=== PATIENT | female | born 1975 | race Hispanic/Latino ===

== ENCOUNTER 2023-05-16 06:26 | Inpatient (IN) | payer OTHER ==
[~2023-05-16] VITALS: Ht 160 cm; Wt 64.2 kg
[2023-05-16] MEDS ORDERED: ZOSYN 3.375GM +NS 50ML IV ONE (07:00)
[2023-05-16] MEDS ORDERED: MORPHINE 2 MG SYG IVP ONE ×2 (07:00→09:30)
[2023-05-16] MEDS ORDERED: ONDANSETRON 4MG INJ IVP ONE (07:00)
[2023-05-16] MEDS ORDERED: 0.9%NACL 1000ML 1,000 ML IV ONE (07:00)
[2023-05-16 07:16] LABS: BASOPHILS # (AUTO) 0.02 K/uL (0.00-0.20); BASOPHILS % (AUTO) 0.3 % (0.0-5.0); EOSINOPHILS # (AUTO) 0.01 K/uL (0.00-0.70); EOSINOPHILS % (AUTO) 0.1 % (0.0-8.0); HEMATOCRIT 42.1 % (36-48); IMMATURE GRANULOCYTE ABSOLUTE 0.04 K/uL (0-1); LYMPHOCYTES # (AUTO) 1.2 K/uL (1.0-4.8); LYMPHOCYTES % (AUTO) 17.2 % (21.0-51.0); MEAN CORPUSCULAR HEMOGLOBIN 25.9 pg (27.0-33.0); MEAN CORPUSCULAR HGB CONC 32.1 g/dL (32.0-36.0); MEAN CORPUSCULAR VOLUME 80.8 fL (79-99); MONOCYTES # (AUTO) 0.3 K/uL (0.1-1.0); NEUTROPHILS # (AUTO) 5.3 K/uL (1.8-7.7); NEUTROPHILS % (AUTO) 77.8 % (40.0-77.0); PLATELET COUNT (AUTO) 216 K/uL (130-400); RED BLOOD CELL COUNT(AUTO) 5.21 MIL/uL (4.00-5.50); RED CELL DISTRIBUTION WIDTH 14.3 % (11.0-15.5); WHITE BLOOD COUNT (AUTO) 6.8 K/uL (4.8-10.8)
[2023-05-16 07:36] LABS: ALBUMIN 3.6 g/dL (3.5-5.0); BILIRUBIN,TOTAL 1.4 mg/dL (0.2-1.0); CREATININE 0.8 mg/dL (0.5-1.5); POTASSIUM 3.5 mmol/L (3.5-5.1); TOTAL PROTEIN, SERUM 7.7 g/dL (6.0-8.3)
[2023-05-16] MEDS ORDERED: IOHEXOL 350 MG/ML 100ML INFUS..BTL IV ONE (07:45)
[2023-05-16 07:53] LABS: APPEARANCE,URINE CLOUDY (CLEAR); BILIRUBIN,URINE 1 mg/dL (NEGATIVE); COLOR,URINE DARK-YELLOW (YELLOW); GLUCOSE, URINE (UA) 50 mg/dL (NEGATIVE); KETONES,URINE 20 mg/dL (NEGATIVE); LEUKOCYTE ESTERASE ,URINE NEGATIVE Leu/uL (NEGATIVE); NITRATE,URINE NEGATIVE (NEGATIVE); OCCULT BLOOD,URINE SMALL (NEGATIVE); PROTEIN,URINE 20 mg/dL (NEGATIVE); UROBILINOGEN,URINE 6 mg/dL (0.2-1.0)
[2023-05-16 07:54] LABS: ADD UA MICROSCOPIC YES
[2023-05-16 07:59] LABS: BACTERIA,URINE MANY /HPF (None Seen); MUCUS,URINE RARE LPF (None Seen); SQUAMOUS EPITHELIAL CELL,UR FEW /HPF (0-2)
[2023-05-16] MEDS ORDERED: HYDROMORPHONE 1 MG INJ IVP ONE (12:30)
[2023-05-16] MEDS: LACTATED RINGERS 1000ML 1,000 ML IV SCH (14:29)
[2023-05-16 15:00] VITALS: BP 169/94; PULSE 68; RESP 16
[2023-05-16] MEDS ORDERED: HYDRALAZINE 20MG/ML VIAL IV PRN (15:00)
[2023-05-16] MEDS ORDERED: ACETAMINOPHEN 325 MG TAB PO PRN ×2 (15:00)
[2023-05-16 15:26] LABS: HEMOGLOBIN A1C 5.6 % (4.0-6.0)
[2023-05-16] MEDS: ONDANSETRON 4MG INJ IVP PRN ×3 (15:38→22:09)
[2023-05-16] MEDS: ZOSYN 3.375GM +NS 50ML IV SCH ×2 (15:38→22:09)
[2023-05-16] MEDS ORDERED: ATOR10 PO (16:27)
[2023-05-16] MEDS ORDERED: ONDA8TAB12 PO (16:27)
[2023-05-16] MEDS ORDERED: LOSA50TA64 PO (16:27)
[2023-05-16] MEDS: MORPHINE 2 MG SYG IVP PRN ×2 (16:29→20:10)
[2023-05-16 19:00] VITALS: BP 159/89; PULSE 72; RESP 18
[2023-05-16 19:40] VITALS: O2SAT 98
[2023-05-16] MEDS: FAMOTIDINE 20MG VIAL IV SCH (20:11)
[2023-05-16 23:00] VITALS: BP 154/82; PULSE 82; RESP 19
[2023-05-17] VITALS (16 sets, daily range): BP systolic 111–153; BP diastolic 64–77; PULSE 74–94; RESP 14–19; O2SAT 100
[2023-05-17] MEDS: LACTATED RINGERS 1000ML 1,000 ML IV SCH ×3 (02:42→16:40)
[2023-05-17 04:37] LABS: BASOPHILS # (AUTO) 0.01 K/uL (0.00-0.20); BASOPHILS % (AUTO) 0.1 % (0.0-5.0); HEMATOCRIT 42.9 % (36-48); IMMATURE GRANULOCYTE ABSOLUTE 0.09 K/uL (0-1); LYMPHOCYTES # (AUTO) 0.8 K/uL (1.0-4.8); MEAN CORPUSCULAR HEMOGLOBIN 25.7 pg (27.0-33.0); MEAN CORPUSCULAR HGB CONC 32.2 g/dL (32.0-36.0); MEAN CORPUSCULAR VOLUME 79.9 fL (79-99); MONOCYTES # (AUTO) 0.7 K/uL (0.1-1.0); MONOCYTES % (AUTO) 5.2 % (3.0-13.0); NEUTROPHILS # (AUTO) 11.3 K/uL (1.8-7.7); PLATELET COUNT (AUTO) 178 K/uL (130-400); RED BLOOD CELL COUNT(AUTO) 5.37 MIL/uL (4.00-5.50); RED CELL DISTRIBUTION WIDTH 14.5 % (11.0-15.5); WHITE BLOOD COUNT (AUTO) 12.8 K/uL (4.8-10.8)
[2023-05-17 05:06] LABS: WBC MORPHOLOGY CONSISTENT W/DIFF
[2023-05-17 05:12] LABS: ALBUMIN 3.4 g/dL (3.5-5.0); BILIRUBIN,DIRECT 3.8 mg/dL (0.0-0.3); BILIRUBIN,TOTAL 4.7 mg/dL (0.2-1.0); CREATININE 0.6 mg/dL (0.5-1.5); POTASSIUM 4.1 mmol/L (3.5-5.1); TOTAL PROTEIN, SERUM 7.8 g/dL (6.0-8.3)
[2023-05-17] MEDS: ZOSYN 3.375GM +NS 50ML IV SCH ×3 (07:59→23:45)
[2023-05-17] MEDS: FAMOTIDINE 20MG VIAL IV SCH ×2 (08:00→19:50)
[2023-05-17 10:54] LABS: CHOLESTEROL 133 mg/dL (<200); HDL CHOLESTEROL 83 mg/dL (35-85); LDL DIRECT 49 mg/dL (0-99); TRIGLYCERIDES 32 mg/dL (30-200)
[2023-05-17] MEDS ORDERED: IOHEXOL-350 50ML VIAL IV ONE (12:58)
[2023-05-17] MEDS ORDERED: INDOMETHACIN 100 MG SUPP.RECT RC ONE (13:30)
[2023-05-17] MEDS ORDERED: LIDOCAINE PF 100MG/5ML (2%) SYRINGE 5ML ONE (15:34)
[2023-05-17] MEDS ORDERED: GLYCOPYRROLATE 1 MG/5 ML SYRINGE ONE (15:34)
[2023-05-17] MEDS ORDERED: SUCCINYLCHOLINE 200MG/10ML SYR ONE (15:34)
[2023-05-17] MEDS ORDERED: DEXAMETHASONE SOD PHOSPHATE 10MG/ML 1ML VIAL ONE (15:34)
[2023-05-17] MEDS ORDERED: MIDAZOLAM HCL 1 MG/ML 2ML VIAL ONE (15:34)
[2023-05-17] MEDS ORDERED: ONDANSETRON 4MG INJ ONE (15:34)
[2023-05-17] MEDS ORDERED: ROCURONIUM 10MG/1ML SYR 10 MG/ML ML ONE (15:35)
[2023-05-17] MEDS ORDERED: PROPOFOL 10 MG/ML 20ML VIAL IV ONE (15:35)
[2023-05-17] MEDS ORDERED: NEOSTIGMINE 5MG/5ML SYR IV ONE (15:35)
[2023-05-17] MEDS ORDERED: FENTANYL CITRATE PF 50 MCG/1 ML 2ML VIAL ONE (15:35)
[2023-05-18] VITALS (8 sets, daily range): BP systolic 115–150; BP diastolic 66–79; PULSE 70–81; RESP 18–20; O2SAT 100
[2023-05-18] MEDS: MORPHINE 2 MG SYG IVP PRN (02:10)
[2023-05-18] MEDS: MORPHINE 4 MG SYG IVP PRN (04:38)
[2023-05-18] MEDS: ZOSYN 3.375GM +NS 50ML IV SCH ×3 (06:21→22:28)
[2023-05-18 06:38] LABS: BASOPHILS # (AUTO) 0.02 K/uL (0.00-0.20); BASOPHILS % (AUTO) 0.2 % (0.0-5.0); HEMATOCRIT 38.3 % (36-48); IMMATURE GRANULOCYTE ABSOLUTE 0.07 K/uL (0-1); LYMPHOCYTES # (AUTO) 0.6 K/uL (1.0-4.8); MEAN CORPUSCULAR HEMOGLOBIN 26.1 pg (27.0-33.0); MEAN CORPUSCULAR HGB CONC 32.4 g/dL (32.0-36.0); MEAN CORPUSCULAR VOLUME 80.6 fL (79-99); MONOCYTES # (AUTO) 0.6 K/uL (0.1-1.0); MONOCYTES % (AUTO) 4.6 % (3.0-13.0); NEUTROPHILS % (AUTO) 89.6 % (40.0-77.0); PLATELET COUNT (AUTO) 131 K/uL (130-400); RED BLOOD CELL COUNT(AUTO) 4.75 MIL/uL (4.00-5.50); RED CELL DISTRIBUTION WIDTH 14.6 % (11.0-15.5); WHITE BLOOD COUNT (AUTO) 12.3 K/uL (4.8-10.8)
[2023-05-18 07:09] LABS: ALBUMIN 2.7 g/dL (3.5-5.0); BILIRUBIN,TOTAL 5.9 mg/dL (0.2-1.0); CREATININE 0.6 mg/dL (0.5-1.5); POTASSIUM 3.2 mmol/L (3.5-5.1); TOTAL PROTEIN, SERUM 6.6 g/dL (6.0-8.3)
[2023-05-18] MEDS: FAMOTIDINE 20MG VIAL IV SCH ×2 (08:59→19:28)
[2023-05-18] MEDS: LACTATED RINGERS 1000ML 1,000 ML IV SCH (18:50)
[2023-05-19] VITALS (7 sets, daily range): BP systolic 102–164; BP diastolic 55–86; PULSE 55–80; RESP 18–20; O2SAT 99
[2023-05-19] MEDS: LACTATED RINGERS 1000ML 1,000 ML IV SCH ×4 (01:21→20:06)
[2023-05-19 05:24] LABS: BASOPHILS # (AUTO) 0.01 K/uL (0.00-0.20); BASOPHILS % (AUTO) 0.1 % (0.0-5.0); EOSINOPHILS # (AUTO) 0.04 K/uL (0.00-0.70); EOSINOPHILS % (AUTO) 0.6 % (0.0-8.0); HEMATOCRIT 34.4 % (36-48); IMMATURE GRANULOCYTE ABSOLUTE 0.03 K/uL (0-1); LYMPHOCYTES # (AUTO) 1.6 K/uL (1.0-4.8); LYMPHOCYTES % (AUTO) 22.5 % (21.0-51.0); MEAN CORPUSCULAR HEMOGLOBIN 25.6 pg (27.0-33.0); MEAN CORPUSCULAR HGB CONC 32.3 g/dL (32.0-36.0); MEAN CORPUSCULAR VOLUME 79.3 fL (79-99); MONOCYTES # (AUTO) 0.5 K/uL (0.1-1.0); MONOCYTES % (AUTO) 7.2 % (3.0-13.0); NEUTROPHILS % (AUTO) 69.2 % (40.0-77.0); PLATELET COUNT (AUTO) 130 K/uL (130-400); RED BLOOD CELL COUNT(AUTO) 4.34 MIL/uL (4.00-5.50); RED CELL DISTRIBUTION WIDTH 14.6 % (11.0-15.5); WHITE BLOOD COUNT (AUTO) 7.2 K/uL (4.8-10.8)
[2023-05-19 05:40] LABS: ALBUMIN 2.2 g/dL (3.5-5.0); BILIRUBIN,TOTAL 1.4 mg/dL (0.2-1.0); CREATININE 0.7 mg/dL (0.5-1.5); POTASSIUM 3.1 mmol/L (3.5-5.1); TOTAL PROTEIN, SERUM 6.1 g/dL (6.0-8.3)
[2023-05-19] MEDS: ZOSYN 3.375GM +NS 50ML IV SCH ×3 (06:22→23:55)
[2023-05-19] MEDS ORDERED: POTASSIUM CHLORIDE 10% ELIXIR 20 MEQ/15 ML UDCUP PO PRN (09:30)
[2023-05-19] MEDS ORDERED: POTASSIUM CHLORIDE 20MEQ/100ML 100 ML IV PRN (09:30)
[2023-05-19] MEDS: KCL 20 MEQ ERTAB PO PRN ×3 (09:33→15:14)
[2023-05-19] MEDS: FAMOTIDINE 20MG VIAL IV SCH ×2 (09:33→20:05)
[2023-05-20] VITALS (29 sets, daily range): BP systolic 126–181; BP diastolic 60–89; PULSE 60–84; RESP 13–20; O2SAT 99–100
[2023-05-20] MEDS: LACTATED RINGERS 1000ML 1,000 ML IV SCH ×3 (04:50→18:00)
[2023-05-20 04:59] LABS: BASOPHILS # (AUTO) 0.02 K/uL (0.00-0.20); BASOPHILS % (AUTO) 0.4 % (0.0-5.0); EOSINOPHILS # (AUTO) 0.04 K/uL (0.00-0.70); EOSINOPHILS % (AUTO) 0.8 % (0.0-8.0); HEMATOCRIT 37.4 % (36-48); IMMATURE GRANULOCYTE ABSOLUTE 0.02 K/uL (0-1); LYMPHOCYTES # (AUTO) 1.4 K/uL (1.0-4.8); LYMPHOCYTES % (AUTO) 29.2 % (21.0-51.0); MEAN CORPUSCULAR HEMOGLOBIN 25.6 pg (27.0-33.0); MEAN CORPUSCULAR HGB CONC 31.8 g/dL (32.0-36.0); MEAN CORPUSCULAR VOLUME 80.6 fL (79-99); MONOCYTES # (AUTO) 0.3 K/uL (0.1-1.0); MONOCYTES % (AUTO) 6.9 % (3.0-13.0); NEUTROPHILS # (AUTO) 3.1 K/uL (1.8-7.7); NEUTROPHILS % (AUTO) 62.3 % (40.0-77.0); PLATELET COUNT (AUTO) 173 K/uL (130-400); RED BLOOD CELL COUNT(AUTO) 4.64 MIL/uL (4.00-5.50); RED CELL DISTRIBUTION WIDTH 14.8 % (11.0-15.5); WHITE BLOOD COUNT (AUTO) 4.9 K/uL (4.8-10.8)
[2023-05-20 05:20] LABS: ALBUMIN 2.5 g/dL (3.5-5.0); BILIRUBIN,DIRECT 0.7 mg/dL (0.0-0.3); BILIRUBIN,TOTAL 1.3 mg/dL (0.2-1.0); CREATININE 0.6 mg/dL (0.5-1.5); POTASSIUM 4.2 mmol/L (3.5-5.1)
[2023-05-20] MEDS: FAMOTIDINE 20MG VIAL IV SCH ×2 (08:38→20:42)
[2023-05-20] MEDS ORDERED: LACTATED RINGERS 1000ML 1,000 ML IV ONE (09:16)
[2023-05-20] MEDS ORDERED: ZOSYN 3.375GM+NS 50ML 50 ML ONE (09:25)
[2023-05-20] MEDS: ZOSYN 3.375GM +NS 50ML IV SCH ×3 (09:29→23:57)
[2023-05-20] MEDS ORDERED: LIDOCAINE PF 100MG/5ML (2%) SYRINGE 5ML ONE (09:35)
[2023-05-20] MEDS ORDERED: SUCCINYLCHOLINE 200MG/10ML SYR ONE (09:35)
[2023-05-20] MEDS ORDERED: PROPOFOL 10 MG/ML 20ML VIAL IV ONE (09:36)
[2023-05-20] MEDS ORDERED: GLYCOPYRROLATE 1 MG/5 ML SYRINGE ONE (09:36)
[2023-05-20] MEDS ORDERED: DEXAMETHASONE SOD PHOSPHATE 10MG/ML 1ML VIAL ONE (09:36)
[2023-05-20] MEDS ORDERED: ONDANSETRON 4MG INJ ONE (09:36)
[2023-05-20] MEDS ORDERED: ROCURONIUM 10MG/1ML SYR 10 MG/ML ML ONE (09:37)
[2023-05-20] MEDS ORDERED: FENTANYL CITRATE PF 50 MCG/1 ML 2ML VIAL ONE ×2 (09:37→11:25)
[2023-05-20] MEDS ORDERED: MIDAZOLAM HCL 1 MG/ML 2ML VIAL ONE (09:37)
[2023-05-20] MEDS ORDERED: BUPIVACAINE/PF 0.25% 30ML VIAL IJ ONE ×2 (09:48→11:19)
[2023-05-20] MEDS ORDERED: INDOCYANINE GREEN 25 MG VIAL IJ ONE (11:05)
[2023-05-20] MEDS ORDERED: ESMOLOL HCL 10 MG/ML 10 ML VIAL ONE (11:42)
[2023-05-20] MEDS ORDERED: MEPERIDINE-PF 25 MG/ML SYG ONE ×2 (12:22→12:33)
[2023-05-20] MEDS: ONDANSETRON 4MG INJ IVP PRN (13:53)
[2023-05-20] MEDS: MORPHINE 4 MG SYG IVP PRN ×2 (13:53→20:42)
[2023-05-21] VITALS: BP 143/81; PULSE 60; RESP 19
[2023-05-21] MEDS: MORPHINE 4 MG SYG IVP PRN ×2 (00:15→08:45)
[2023-05-21 04:00] VITALS: BP 146/75; PULSE 61; RESP 19
[2023-05-21] MEDS: ZOSYN 3.375GM +NS 50ML IV SCH (06:36)
[2023-05-21 08:00] VITALS: BP 149/84; PULSE 60; RESP 18; O2SAT 98
[2023-05-21] MEDS ORDERED: ACETAMINOPHEN 500 MG TABLET PO PRN (08:30)
[2023-05-21] MEDS: FAMOTIDINE 20MG VIAL IV SCH (08:44)
[2023-05-21 09:02] LABS: BASOPHILS # (AUTO) 0.02 K/uL (0.00-0.20); BASOPHILS % (AUTO) 0.2 % (0.0-5.0); HEMATOCRIT 39.6 % (36-48); IMMATURE GRANULOCYTE ABSOLUTE 0.04 K/uL (0-1); LYMPHOCYTES # (AUTO) 1.8 K/uL (1.0-4.8); LYMPHOCYTES % (AUTO) 20.5 % (21.0-51.0); MEAN CORPUSCULAR HEMOGLOBIN 25.2 pg (27.0-33.0); MEAN CORPUSCULAR HGB CONC 31.8 g/dL (32.0-36.0); MEAN CORPUSCULAR VOLUME 79.2 fL (79-99); MONOCYTES # (AUTO) 0.4 K/uL (0.1-1.0); MONOCYTES % (AUTO) 4.4 % (3.0-13.0); NEUTROPHILS # (AUTO) 6.4 K/uL (1.8-7.7); NEUTROPHILS % (AUTO) 74.4 % (40.0-77.0); PLATELET COUNT (AUTO) 267 K/uL (130-400); RED CELL DISTRIBUTION WIDTH 14.6 % (11.0-15.5); WHITE BLOOD COUNT (AUTO) 8.7 K/uL (4.8-10.8)
[2023-05-21 09:30] LABS: ALBUMIN 2.9 g/dL (3.5-5.0); BILIRUBIN,TOTAL 1.1 mg/dL (0.2-1.0); CREATININE 0.6 mg/dL (0.5-1.5); POTASSIUM 3.7 mmol/L (3.5-5.1); TOTAL PROTEIN, SERUM 7.8 g/dL (6.0-8.3)
[2023-05-21 10:35] LABS: ERYTHROCYTE SEDIMENTATION RATE 62 MM/HR (0-20)
[2023-05-21] MEDS: LACTATED RINGERS 1000ML 1,000 ML IV SCH (11:25)
[2023-05-21] MEDS ORDERED: CEPH500C2 PO (11:41)
[2023-05-21 11:58] VITALS: BP 143/88; PULSE 55; RESP 16
== END 2023-05-21 16:30 | disposition home or self-care (01) | DRG 417 ==
LOC: EDH 06:26 → EDHIP 06:27 → 4CH 14:57
PROVIDERS: ADMIT Hospitalist; ATTEND Hospitalist
PROC: 0FC98ZZ Extirpation of Matter from Common Bile Duct, Via Natural or Artificial Opening Endoscopic (ICD-10-PCS; 2023-05-17)
PROC: BF101ZZ Fluoroscopy of Bile Ducts using Low Osmolar Contrast (ICD-10-PCS; 2023-05-17)
PROC: 0FT44ZZ Resection of Gallbladder, Percutaneous Endoscopic Approach (ICD-10-PCS; principal; 2023-05-20 11:45)
DX: K80.60 Calculus of gallbladder and bile duct with cholecystitis, unspecified, without obstruction (principal); K85.10 Biliary acute pancreatitis without necrosis or infection; E87.1 Hypo-osmolality and hyponatremia; I10 Essential (primary) hypertension; I16.0 Hypertensive urgency; E66.09 Other obesity due to excess calories; E78.5 Hyperlipidemia, unspecified; Z82.49 Family history of ischemic heart disease and other diseases of the circulatory system; Z98.891 History of uterine scar from previous surgery; Z68.25 Body mass index [BMI] 25.0-25.9, adult
CPT/HCPCS: 36415; 43262; 43264; 71045; 74177; 74330; 76705; 80048; 80053; 80061; 80076; 81001; 81025; 82150; 83036; 83605; 83690; 84145; 84484; 84702; 85025; 85651; 85730; 86140; 86850; 86900; 86901; 87040; 87088; 93005; C1769; G0378; J0330; J1100; J1170; J2001; J2175; J2250; J2270; J2405; J2543; J2704; J2710; J3010; J3490; J7030; J7120; Q9967; A4215; A4216; A4222; A4223; A4600; A4620; A7002; J0665